=== PATIENT | female | born 1985 | race Caucasian/White ===

== ENCOUNTER → 2021-01-15 | Day surgery (SDC) | payer OTHER ==
[~2021-01-15] MED LIST: ACETAMINOPHEN500 M1 PO; BC POWDER PACK1 EACH PO; CLEOCIN300 MG PO; IBUPROFEN600 MG PO; NORCO 5-325 TA1 EACH PO
[2021-01-15 07:25] LABS: HCG (URINE) SCREEN NEGATIVE (NEGATIVE)
== END | disposition home or self-care (01) ==
LOC: FAS 06:30
PROVIDERS: Oral & Maxillofacial Surgery
DX: K02.63 Dental caries on smooth surface penetrating into pulp (principal); G43.909 Migraine, unspecified, not intractable, without status migrainosus; G47.63 Sleep related bruxism; Z20.822 Contact with and (suspected) exposure to COVID-19; Z88.6 Allergy status to analgesic agent; Z88.4 Allergy status to anesthetic agent; Z87.891 Personal history of nicotine dependence; Z85.3 Personal history of malignant neoplasm of breast; Z87.19 Personal history of other diseases of the digestive system
CPT/HCPCS: 84703; J1100; J1170; J2250; J2405; J2704; J2710; J3010; J7120

== ENCOUNTER 2021-01-20 16:58 | Emergency (ER) | payer OTHER ==
[~2021-01-20 16:58] MED LIST changes: -CLEOCIN300 MG PO; -NORCO 5-325 TA1 EACH PO
[2021-01-20] MEDS ORDERED: NORCO 5-325 TA1 EACH PO (18:41)
[2021-01-20] MEDS ORDERED: CLEOCIN300 MG PO (18:41)
== END 2021-01-20 19:09 | disposition home or self-care (01) ==
LOC: FER 16:58
DX: K04.7 Periapical abscess without sinus (principal); Z88.4 Allergy status to anesthetic agent; Z88.6 Allergy status to analgesic agent
CPT/HCPCS: 99282

== ENCOUNTER 2021-02-17 12:29 | Emergency (ER) | payer OTHER ==
[~2021-02-17 12:29] MED LIST changes: +CLEOCIN300 MG PO; +NORCO 5-325 TA1 EACH PO
== END 2021-02-17 13:55 | disposition home or self-care (01) ==
LOC: FER 12:29
DX: S00.83XA Contusion of other part of head, initial encounter (principal); S00.511A Abrasion of lip, initial encounter; Z98.818 Other dental procedure status; Z90.49 Acquired absence of other specified parts of digestive tract; Z98.890 Other specified postprocedural states; Z88.6 Allergy status to analgesic agent; Z88.4 Allergy status to anesthetic agent; W51.XXXA Accidental striking against or bumped into by another person, initial encounter
CPT/HCPCS: 99283